=== PATIENT | female | born 1985 | race Caucasian/White ===

== ENCOUNTER 2023-11-26 08:03 | Outpatient (OUT) | payer OTHER, SELFPAY ==
--- NOTE | 2023-11-26 08:04 | US_ITS ---
The [address] [address] Patient Name: IVANIA QIU MRN: [id number] date: 1985 Sex: F Assigned Patient Location: [place] Current Patient Location: US Accession/Order Number: [id number] Exam Date: 11/26/2023 08:05 Report Date: 11/26/2023 14:58 At the request of: PERLITA KELLEY Procedure: US right upper quadrant EXAM: US right upper quadrant HISTORY: . History of infectious and parasitic diseases Z86.19 . COMPARISON: None. TECHNIQUE: Grayscale and color imaging was performed FINDINGS: The pancreas is unremarkable. The liver is normal in size. No masses are noted. Color-flow is noted in the portal and hepatic veins. The gallbladder appears normal with no stones or sludge identified. No gallbladder wall thickening is noted. Common bile duct measures 5 mm. Right kidney measures 11.6 x 5.6 x 4.5 cm. No solid renal cortical masses or hydronephrosis is noted. US/US right upper quadrant IMPRESSION: Normal ultrasound of the right upper quadrant. Electronically authenticated by: JASPREET ROBERSON Date: 11/26/2023 14:58
[2023-11-26 09:41] LABS: Alanine Aminotransferase 22 U/L (14-59); Albumin Globulin Ratio 0.9; Albumin Level 3.4 g/dL (3.4-5.0); Alkaline Phosphatase 100 U/L (46-116); Aspartate Amino Transferase 13 U/L (15-37); Bilirubin Direct 0.1 mg/dL (0.0-0.2); Bilirubin Total 0.5 mg/dL (0.2-1.0); Total Protein 7.4 g/dL (6.4-8.2)
[2023-11-30 12:10] LABS: HBsAg Screen Negative (Negative); HCV Ab Reactive (Non Reactive); Hep A Ab, IgM Negative (Negative); Hep B Core Ab, IgM Negative (Negative)
== END 2023-11-26 08:04 | disposition home or self-care (01) ==
LOC: US 08:03
PROVIDERS: PCP Nurse Practitioner Family; Visit Provider Nurse Practitioner Family
DX: Z86.19 Personal history of other infectious and parasitic diseases (principal)
CPT/HCPCS: 36415; 76705; 80074; 80076